=== PATIENT | male | born 2000 | race Hispanic/Latino ===

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

== ENCOUNTER 2020-02-09 13:39 | Emergency (ER) | payer OTHER, SELFPAY ==
[2020-02-09 14:08] LABS: #Eosinphils 0.1 thou/uL (0.0-0.7); #Monocytes 0.6 thou/uL (0.11-0.59); %Basophils 0.5 % (0.0-1.0); %Eosinophils 0.9 % (0.0-10.0); %Monocytes 7.2 % (0.0-4.0); %Neutrophils 68.4 % (31.0-61.0); Hemoglobin 16.9 g/dL (14.0-18.0); Mean Corpuscular HGB CONC 34.2 g/dL (32.0-36.0); Mean Corpuscular Hemoglobin 30.7 pg (25.0-35.0); Mean Corpuscular Volume 89.9 fL (78.0-98.0); Mean Platelet Volume 10.2 fL (7.4-10.4); Platelet Count 181 thou/uL (130-400); Red Blood Cell (RBC) Count 5.49 mill/uL (4.00-5.20); White Blood Cell (WBC) Count 8.8 thou/uL (4.8-10.8)
[2020-02-09 14:24] LABS: Bilirubin Negative (Negative); Blood, Urine Negative (Negative); Clarity Clear (Clear); Glucose, Urine (Dipstick) Normal (Negative); Leukocyte Negative Leu/uL (Negative); Nitrite Negative (Negative); Protein, Urine (Dipstick) 10 mg/dL (Neg-Trace); Urobilinogen Normal mg/dL (Less than 2)
[2020-02-09 14:29] LABS: ALT (SGPT) 56 U/L (8-55); AST (SGOT) 32 U/L (10-45); Albumin 4.8 g/dL (3.5-5.0); Alkaline Phosphatase 118 U/L (50-130); Anion Gap 16 mmol/L (10-20); BUN (Urea Nitrogen) 10 mg/dL (8.4-21.0); Calc. Creatinine Clearance 0 mL/min (70-130); Calcium 9.7 mg/dL (7.8-10.44); Carbon Dioxide 22 mmol/L (22-29); Chloride 104 mmol/L (98-107); Estimated GFR-MDRD Greater than 90; Glucose 100 mg/dL (70-105); Lipase 19 U/L (8-78); Potassium 3.8 mmol/L (3.5-5.1); Protein, Total 7.8 g/dL (6.0-8.3); Sodium 138 mmol/L (136-145)
--- NOTE | 2020-02-09 16:04 | ULT ---
Exam: Right upper quadrant ultrasound: HISTORY: Right upper quadrant abdominal pain for 3 days COMPARISON: None FINDINGS: Liver: Increased echogenicity with mildly coarsened echotexture likely attributable to diffuse fatty infiltration. This does limit evaluation of the hepatic parenchyma, no definite focal hepatic lesion is seen. Small subcentimeter hypoechoic area is seen adjacent to the gallbladder probably due to small focal area of fatty sparing. Gallbladder: No evidence of gallbladder calculi, gallbladder wall thickening, or pericholecystic flui d. Common bile duct: The common duct is normal in caliber measuring 0.5 cm in diameter. Pancreas: Limited visualized portions of the pancreas demonstrate a normal sonographic appearance. Right kidney: Right kidney demonstrates a normal sonographic appearance. The right kidney measures 1 0.4 cm in length. IVC: The visualized IVC demonstrates a normal sonographic appearance. IMPRESSION: 1. Fatty infiltration of the liver with probable focal area of fatty sparing adjacent to the gallblad clary. 2. No gallbladder calculi are seen, and the common duct is normal in caliber.
== END 2020-02-09 17:00 | disposition home or self-care (01) ==
LOC: ERS 13:39
DX: R10.11 Right upper quadrant pain (principal); R11.0 Nausea
CPT/HCPCS: 36415; 76705; 80053; 81003; 83690; 85025

== ENCOUNTER 2020-07-30 09:49 | Emergency (ER) | payer OTHER, SELFPAY ==
[2020-07-30 17:15] LABS: SARS-CoV-2 MS2 Positive; SARS-CoV-2 N Gene Negative; SARS-CoV-2 S Gene Negative; SARS-CoV-2 by NAA Not Detected (NotDetected); SARS-CoV-2 orf1ab Negative
== END 2020-07-30 10:25 | disposition home or self-care (01) ==
LOC: ERS 09:49
DX: R05 Cough (principal); Z20.828 Contact with and (suspected) exposure to other viral communicable diseases; J45.909 Unspecified asthma, uncomplicated
CPT/HCPCS: 87635; 99283; U0003

== ENCOUNTER 2022-03-22 09:56 | Emergency (ER) | payer OTHER, SELFPAY | END 2022-03-22 11:55 | disposition home or self-care (01) | LOC: ERS 09:56 | DX: R05.9 Cough, unspecified (principal); J45.909 Unspecified asthma, uncomplicated | CPT/HCPCS: 99283 ==

== ENCOUNTER 2022-04-26 18:30 | Emergency (ER) | payer OTHER ==
[2022-04-26] MEDS ORDERED: Lidocaine 1% PF 5 ML VIAL ONE (19:09)
[2022-04-26] MEDS ORDERED: Bacitracin 1 PK ONE (19:33)
[2022-04-26] MEDS ORDERED: Boostrix 0.5 ML (Tdap) VIAL ONE (19:33)
== END 2022-04-26 20:02 | disposition home or self-care (01) ==
LOC: ERS 18:30
DX: S61.215A Laceration without foreign body of left ring finger without damage to nail, initial encounter (principal); Z23 Encounter for immunization; W26.0XXA Contact with knife, initial encounter; J45.909 Unspecified asthma, uncomplicated
CPT/HCPCS: 12001; 90471; 90715

== ENCOUNTER 2022-08-18 19:05 | Emergency (ER) | payer OTHER ==
[2022-08-18] MEDS ORDERED: Ibuprofen 200 MG TAB ONE (21:41)
[2022-08-18] MEDS ORDERED: Acetaminophen 500 MG TAB ONE (21:41)
== END 2022-08-18 22:17 | disposition home or self-care (01) ==
LOC: ERS 19:05
DX: B34.9 Viral infection, unspecified (principal); R51.9 Headache, unspecified
CPT/HCPCS: 71046

== ENCOUNTER 2023-04-19 23:20 | Emergency (ER) | payer OTHER | END 2023-04-20 00:47 | disposition home or self-care (01) | LOC: ERS 23:20 | DX: R51.9 Headache, unspecified (principal) | CPT/HCPCS: 99282 ==

== ENCOUNTER 2024-10-23 16:39 | Emergency (ER) | payer OTHER, SELFPAY | END 2024-10-23 18:59 | disposition home or self-care (01) | LOC: ERS 16:39 | DX: J68.3 Other acute and subacute respiratory conditions due to chemicals, gases, fumes and vapors (principal); R09.82 Postnasal drip | CPT/HCPCS: 71046 ==